=== PATIENT | male | born 1950 | race Caucasian/White ===

== ENCOUNTER → 2023-07-13 08:29 | Outpatient (REF) | payer MEDICARE, OTHER, SELFPAY | LOC: MRI 3T 08:29 | PROVIDERS: ATTENDING PHYSICIAN Specialist; FAMILY PHYSICIAN Family Medicine; OTHER PHYSICIAN Chiropractor; REFERRING PHYSICIAN Neurological Surgery | DX: M50.11 Cervical disc disorder with radiculopathy, high cervical region (principal) | CPT/HCPCS: 72141 ==

== ENCOUNTER → 2023-08-15 07:19 | Outpatient (REF) | payer MEDICARE, OTHER, SELFPAY | LOC: RAD 07:19 | PROVIDERS: ATTENDING PHYSICIAN Specialist; FAMILY PHYSICIAN Family Medicine | DX: N23 Unspecified renal colic (principal) | CPT/HCPCS: 74176 ==

== ENCOUNTER → 2023-12-01 09:35 | Outpatient (REF) | payer MEDICARE, OTHER, SELFPAY | LOC: MRI 3T 09:35 | PROVIDERS: ATTENDING PHYSICIAN Specialist; FAMILY PHYSICIAN Family Medicine | DX: M48.07 Spinal stenosis, lumbosacral region (principal); M54.16 Radiculopathy, lumbar region | CPT/HCPCS: 72148 ==

== ENCOUNTER → 2023-12-28 08:52 | Outpatient (REF) | payer MEDICARE, OTHER, SELFPAY | LOC: MRI 3T 08:52 | PROVIDERS: ATTENDING PHYSICIAN Neurological Surgery; FAMILY PHYSICIAN Family Medicine; OTHER PHYSICIAN Neurological Surgery; OTHER PHYSICIAN Specialist | DX: M48.02 Spinal stenosis, cervical region (principal) | CPT/HCPCS: 72141 ==

== ENCOUNTER 2024-08-03 04:13 | Emergency (ER) | payer MEDICARE, OTHER, SELFPAY ==
[2024-08-03 04:22] VITALS: BP 120/70
[2024-08-03 04:52] VITALS: BP 114/68; BMI 27.6
[2024-08-03 05:00] VITALS: BP 130/69
[2024-08-03 05:11] LABS: % Basophils 0.7 % (0-2); % Eosinophils 2.6 % (0-6); % Immature Granulocytes 0.3 % (0-0.5); % Lymphocytes 43.3 % (20.5-51.1); % Monocytes 9.2 % (1.7-9.3); % Neutrophils 43.9 % (42.2-75.2); Absolute Eosinophils 0.2 10^3/uL (0-0.7); Absolute Lymphocytes 2.5 10^3/uL (1.2-3.4); Absolute Monocytes 0.5 10^3/uL (0.1-0.6); Absolute Neutrophils 2.5 10^3/uL (1.4-6.5); Hemoglobin 13.6 g/dL (13.0-18.0); Mean Corp Hgb Conc. 32.4 g/dL (33.0-37.0); Mean Corpuscular Hgb 29.7 pg (27.0-31.0); Mean Corpuscular Volume 91.7 fL (80.0-94.0); Mean Platelet Volume 9.7 fL (7.4-10.4); Nucleated Red Blood Cells % 0 % (-); Platelet Count 170 10^3/uL (130-400); Red Blood Cell Count 4.58 10^6/uL (4.70-6.10); Red Cell Dist. Width 14.4 % (11.5-14.5); White Blood Cell Count 5.8 10^3/uL (4.8-10.8)
[2024-08-03 05:34] LABS: ALT (SGPT) 34 U/L (0-50); AST (SGOT) 40 U/L (17-59); Albumin 4.3 g/dl (3.5-5.0); Alkaline Phosphatase 62 U/L (38-126); Blood Urea Nitrogen 20 mg/dl (9-20); Calcium 9.4 mg/dl (8.4-10.2); Carbon Dioxide 27 mmol/L (22-30); Chloride 103 mmol/L (98-107); Estimated Creatinine Clearance 79 ml/min; Glucose 126 mg/dl (70-99); Potassium 3.8 mmol/L (3.5-5.1); Sodium 139 mmol/L (135-145); Total Bilirubin 1.4 mg/dl (0.2-1.3); Total Protein 6.6 g/dl (6.3-8.2); eGFR > 60.00
[2024-08-03 05:47] LABS: Troponin I < 0.012 ng/ml
[2024-08-03 06:00] VITALS: BP 104/64
--- NOTE | 2024-08-03 06:21 | ED.GENMED ---
History of Present Illness
General
Chief Complaint: Cardiac Symptoms
Source: patient
Exam Limitations: none
Time Seen by Provider: 08/03/24 06:12
History of Present Illness
History of Present Illness:
See MDM
Past History
Past History
ED Past Medical History: [place] and Other (Spinal stenosis, AAA)
ED Past Surgical History: Cardiac (CABG X5) and Orthopedic
Social History
Tobacco: Non-smoker
Alcohol: Occasional
Personal:
Living: with family
Phy Exam
Physical Exam
Physical Exam:
See MDM
Course
Orders/Labs/Results
Orders:
Orders
08/03/24 04:18
ECG [Electrocardiogram (*1)] Urgent
Reason for Study: Atrial Fibrillation
EKG- Treatment ONCE
EKG- Treatment ONCE
08/03/24 04:53
Electrocardiogram (*1) Urgent
Reason for Study: Atrial Fibrillation
Other Reason for Exam: converted to NSR
EKG- Treatment ONCE
Complete Blood Count/With Diff Urgent
Comprehensive Metabolic Panel Urgent
Troponin I Urgent
Abnormal Lab Results
08/03/24
04:53
RBC 4.58 L 10^6/uL
(4.70-6.10)
MCHC 32.4 L g/dL
(33.0-37.0)
Glucose 126 H mg/dl
(70-99)
Total Bilirubin 1.4 H mg/dl
(0.2-1.3)
08/03/24 04:53
08/03/24 04:53
Vital Signs
Initial and Last Documented VS:
Initial Vital Signs
Temp Pulse Resp BP Pulse Ox
97.8 F 70 20 120/70 100
08/03/24 04:22 08/03/24 04:22 08/03/24 04:22 08/03/24 04:22 08/03/24 04:22
Last Documented Vital Signs
Temp Pulse Resp BP Pulse Ox
97.8 F 67 16 104/64 98
08/03/24 04:22 08/03/24 06:00 08/03/24 06:00 08/03/24 06:00 08/03/24 06:00
MDM/Problems Addressed
Differential Diagnosis Includes:
HPI and MDM Narrative:
74-year-old male presenting for evaluation of recurrent A-fib. Patient felt himself go through A-fib in the low night. He states his heart rate was going as fast as 120 bpm. Patient states he took an extra Coreg. 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 Patient felt a pounding heartbeat. This was associated with mild chest discomfort. On arrival, patient flipped back to sinus rhythm. All symptoms have since resolved. Patient does acknowledge that he
just want to make sure that his labs were okay and his troponin was normal
On my evaluation, patient well-appearing and nontoxic. Heart regular rate and rhythm. No leg edema. Patient sitting in bed comfortably. We discussed no clinically relevant lab abnormalities and patient states feels comfortable going home
Physical exam
General: Well appearing and non-toxic
HEENT: protecting airway
Neck: appears supple
CV: No evidence of cyanosis. Regular rate and rhythm
Resp: No accessory muscle use
Abd: Non-distended
Extremities: No deformities. No leg edema
Neuro: alert
Psych: Normal affect
Skin: Intact
Problems Addressed including Acute and Chronic Conditions affecting care:
1. Recurrent A-fib
Acuity: acute
Prognosis: stable
Details: After extra dose of Coreg at home, patient now in sinus rhythm. Blood work without clinically relevant abnormalities. Patient currently symptom-free
Differential Diagnosis (but not limited to): A-fib with RVR, SVT
Testing considered: Second troponin
Drug therapy (if applicable): OTC meds, please see d/c instruction regarding Rx drugs
Amount and/or Complexity of Data Reviewed
Clinical info obtained from: Patient
External data reviewed: N/A
Labs I independently reviewed (but not limited to): Troponin normal
Radiology: N/A
Pulse Ox: not hypoxic
EKG independently reviewed: Sinus rhythm, normal axis, no STEMI
Sugar Trucker: Sinus rhythm
Critical Care: N/A
Risk of Complication:
Social Determinants of health: Good social support
Discussed with other providers: N/A
Escalation of Care includes Admit/Obs: After being observed in the Emergency Department, pt stable for discharge.
Occasional wrong word or 'sound a like' substitutions may have occurred due to the inherent limitations of voice recognition software. Read the chart carefully and recognize, using context, where substitutions have occurred.
*Critical Care Note
Total Time (30-74mins, 75-104mins- exclusive of procedures): Not Applicable
ED Attending Note
-
Portions of this chart may have been created with voice recognition software.� Occasional wrong word or��sound alike� substitutions may have occurred due to the inherent limitations of voice recognition software.
Discharge Plan
Departure
Patient Disposition: Home (Routine Discharge)
Date of Disposition: 08/03/24
Time of Disposition: 06:24
Patient with high blood pressure during this ER visit?: No
Discharge Problem:
A-fib
Instructions: Atrial fibrillation
Prescriptions:
No Action
zinc 15 MG tablet
15 mg PO DAILY
nitroglycerin 0.4 MG tablet, sublingual
0.4 mg sublingual [id number] PRN (Reason: chest pain)
coenzyme Q10 [Co Q-10] 100 MG capsule
100 mg PO TID
docosahexaenoic acid-epa 1 CAP capsule
1,800 mg PO BID
bergamot (bulk) 15 GM powder
500 mg PO BID
Berberine
600 mg PO BID
aspirin 81 MG tablet,delayed release (DR/EC)
81 mg PO DAILY
B12 5,000 MCG
5,000 mcg PO DAILY
Patient Comments:
metholated form
ascorbic acid (vitamin C) [Vitamin C] 1,000 mg Tablet
1,000 mg PO DAILY
carvedilol 6.25 mg Tablet
3.125 mg PO BID
potassium 99 mg Tablet
99 mg PO DAILY
cholecalciferol (vitamin D3) [Vitamin D3] 125 mcg (5,000 unit) Tablet
7,500 unit PO DAILY
vitamin K2 100 mcg Capsule
200 mcg PO DAILY
Curcumin 400 MG
400 mg PO DAILY
Kelp (iodine) 800 MCG
800 mcg PO DAILY
Patient Comments:
1 drop + 800 mcg
Magnesium Malate 1,250 MG
1,250 mg PO TID
Methylfolate 1,000 MG
1,000 mg PO DAILY
Vitamin B9 50 MG
50 mg PO DAILY
tramadol 50 mg tablet
50 mg PO DAILYPRN PRN (Reason: pain)
pregabalin [Lyrica] 150 mg Capsule
150 mg PO BID
omega 3-vql-ogh-fish oil [Fish Oil] 1,200 (144-216) mg Capsule
1,200 cap PO BID
isosorbide mononitrate 30 mg tablet extended release 24 hr
30 mg PO DAILY Qty: 90 3RF
Repatha SureClick 140 mg/mL Pen Injector
140 mg SC Q2W
Referrals:
Michael Gaspar MD [Family Provider] -
Activity Restrictions/Additional Instructions:
Please return for any worsening symptoms.
You may return at any time if you have further concerns.
Please follow up with your doctor at the first available appointment, preferably this week.
Thank you for choosing [facility].
Interventions
Interventions:
*Risk Screen - Suicide Last Done: 08/03/24 04:22
*General Assessment Last Done: 08/03/24 04:56
*Neglect/Abuse Screening Last Done: 08/03/24 04:22
*ED COVID-19 Vaccine History Last Done: 08/03/24 04:56
ED- Pulmonary Assessment Last Done: 08/03/24 04:56
ED- Cardiac Assessment Last Done: 08/03/24 04:56
Discharge Date and Time
Print Language: LIBERIAN
== END 2024-08-03 06:37 | disposition home or self-care (01) ==
LOC: EMR 04:13
PROVIDERS: Emergency Medicine; EMERGENCY PHYSICIAN Student in an Organized Health Care Education/Training Program; FAMILY PHYSICIAN Family Medicine
DX: I48.91 Unspecified atrial fibrillation (principal); I25.2 Old myocardial infarction; Z95.1 Presence of aortocoronary bypass graft; Z79.899 Other long term (current) drug therapy
CPT/HCPCS: 99284; 80053; 84484; 85025; 93005

== ENCOUNTER → 2024-10-24 13:18 | Outpatient (REF) | payer MEDICARE, OTHER, SELFPAY | LOC: PAVMRI 13:18 | PROVIDERS: ATTENDING PHYSICIAN Nurse Practitioner Family; FAMILY PHYSICIAN Family Medicine | DX: M54.16 Radiculopathy, lumbar region (principal); Z98.890 Other specified postprocedural states | CPT/HCPCS: 72148 ==

== ENCOUNTER 2024-11-09 15:21 | Emergency (ER) | payer MEDICARE, OTHER, SELFPAY ==
[2024-11-09 15:22] VITALS: BP 116/76
[2024-11-09 16:01] VITALS: BMI 27.1
[2024-11-09] MEDS: TORADOL 15 MG IV (16:32)
[2024-11-09 16:46] LABS: Urine Albumin Negative (Neg - Trace); Urine Bilirubin Negative (Negative); Urine Character Clear (Clear); Urine Color Yellow; Urine Glucose Negative (Negative); Urine Ketone Negative (Negative); Urine Leukocyte Negative (Negative); Urine Nitrite Negative (Negative); Urine Occult Blood Negative (Negative); Urine Specific Gravity 1.015 (<1.030); Urine Urobilinogen Negative (Neg - 1+)
[2024-11-09 16:47] LABS: % Basophils 0.6 % (0-2); % Immature Granulocytes 0.1 % (0-0.5); % Lymphocytes 21.1 % (20.5-51.1); % Monocytes 9.4 % (1.7-9.3); % Neutrophils 67.8 % (42.2-75.2); Absolute Eosinophils 0.1 10^3/uL (0-0.7); Absolute Lymphocytes 1.5 10^3/uL (1.2-3.4); Absolute Monocytes 0.7 10^3/uL (0.1-0.6); Absolute Neutrophils 4.9 10^3/uL (1.4-6.5); Hematocrit 35.9 % (39.0-52.0); Hemoglobin 11.9 g/dL (13.0-18.0); Mean Corp Hgb Conc. 33.1 g/dL (33.0-37.0); Mean Corpuscular Hgb 30.4 pg (27.0-31.0); Mean Corpuscular Volume 91.8 fL (80.0-94.0); Nucleated Red Blood Cells % 0 % (-); Platelet Count 170 10^3/uL (130-400); Red Blood Cell Count 3.91 10^6/uL (4.70-6.10); Red Cell Dist. Width 14.1 % (11.5-14.5); White Blood Cell Count 7.3 10^3/uL (4.8-10.8)
--- NOTE | 2024-11-09 16:52 | ED.GENMED ---
History of Present Illness
General
Chief Complaint: Flank Pain
Time Seen by Provider: 11/09/24 15:36
History of Present Illness
History of Present Illness:
74-year-old male with history of chronic back issues presenting to the emergency department for abdominal pain. Patient reports symptoms started around noon. Pain is in the right side of his back, travels to his abdomen. Denies associated urinary
complaints. Notes history of gallbladder issues as well as kidney stones. Denies abdominal surgeries. Denies fever. Denies symptoms starting after any particular food intake. Denies fever, chest pain, difficulty breathing denies vomiting or
changes in stool. Denies additional acute medical complaints
Past History
Past History
ED Past Medical History: [place] and Other (Spinal stenosis, AAA)
ED Past Surgical History: Cardiac (CABG X5) and Orthopedic
Social History
Tobacco: Non-smoker
Alcohol: Occasional
Personal:
Living: with family
Phy Exam
Physical Exam
Physical Exam:
General: Well-appearing, no clinical signs of dehydration, nontoxic and in no acute distress
HEENT: protecting airway
Neck: appears supple
CV: Normal heart rate, regular rhythm
Resp: No accessory muscle use, no increased work of breathing, lungs clear to auscultation bilaterally
Abd: Soft and non-distended, focal tenderness to the right upper and lower quadrants of the abdomen, upper greater than lower. No rebound or guarding. No CVA tenderness.
Extremities: No deformities, no swelling, no erythema, pulses and sensation intact
Neuro: alert, no focal neurologic deficit
: deferred
Rectal: deferred
Psych: Normal affect
Skin: Intact
Course
Orders/Labs/Results
Orders:
Orders
11/09/24 16:14
Ketorolac [Toradol] 15 mg IV NOW STA
US Abdomen Complete/Upper Urgent
Comment:
Reason For Exam: RUQ pain, hx gallstones
11/09/24 16:35
Complete Blood Count/With Diff Urgent
Comprehensive Metabolic Panel Urgent
Lipase Urgent
Urinalysis Reflex To Culture Urgent
Date Specimen was Collected: 11/09/24
Time Specimen was Collected: 16:32
11/09/24 17:40
CT Abd/pelvis W Iv Cont Urgent
Comment:
Reason For Exam: Right upper and lower pain, right back pain
Abnormal Lab Results
11/09/24
16:35
RBC 3.91 L 10^6/uL
(4.70-6.10)
Hgb 11.9 L g/dL
(13.0-18.0)
Hct 35.9 L %
(39.0-52.0)
Absolute Monos (auto) 0.7 H 10^3/uL
(0.1-0.6)
Monocytes % 9.4 H %
(1.7-9.3)
Chloride 111 H mmol/L
(98-107)
Glucose 103 H mg/dl
(70-99)
Total Bilirubin 1.4 H mg/dl
(0.2-1.3)
AST 125 H U/L
(17-59)
ALT 61 H U/L
(0-50)
11/09/24 16:35
11/09/24 16:35
Vital Signs
Initial and Last Documented VS:
Initial Vital Signs
Temp Pulse Resp BP Pulse Ox
97.6 F 61 16 116/76 100
11/09/24 15:22 11/09/24 15:22 11/09/24 15:22 11/09/24 15:22 11/09/24 15:22
Last Documented Vital Signs
Temp Pulse Resp BP Pulse Ox
97.6 F 61 16 116/76 100
11/09/24 15:22 11/09/24 15:22 11/09/24 15:22 11/09/24 15:22 11/09/24 15:22
MDM/Problems Addressed
MDM/Problems Addressed:
74-year-old male presenting to the emergency department for right-sided abdominal pain. Vital signs are normal.
On exam patient is resting comfortably, no acute distress. Focal tenderness to the right side of the abdomen, however upper greater than lower. Cholelithiasis versus cholecystitis versus nephrolithiasis consideration. Plan for laboratory
analysis, urinalysis. Will start with upper abdominal ultrasound imaging for further evaluation. Toradol administered for pain
17:40 -patient reports improvement in pain. Ultrasound shows cholelithiasis without evidence of cholecystitis. Mild elevation of T. bili, however appears chronic. Patient with mild elevation of liver function, however ultrasound notes suspected
underlying liver disease. No dilatation to the biliary ducts. Lower suspicion for choledocholithiasis. However, patient continues to report right lower pain and right back pain. Urine without any blood. Lower suspicion for renal stone. Does no
history of diverticulitis. For this reason we will proceed with CT imaging to ensure no additional acute pathology.
19:10-CT without additional acute pathology. Mention of cholelithiasis without any findings to suggest biliary tract dilatation. There is a small right renal cyst. 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
follow-up. Otherwise feel stable for discharge with diagnosis of cholelithiasis. Diet monitor discussed and outpatient surgical follow-up. Return precautions discussed.
*Critical Care Note
Total Time (30-74mins, 75-104mins- exclusive of procedures): Not Applicable
ED Attending Note
-
Portions of this chart may have been created with voice recognition software.� Occasional wrong word or��sound alike� substitutions may have occurred due to the inherent limitations of voice recognition software.
Discharge Plan
Departure
Prescriptions:
No Action
zinc 15 MG tablet
15 mg PO DAILY
nitroglycerin 0.4 MG tablet, sublingual
0.4 mg sublingual [id number] PRN (Reason: chest pain)
coenzyme Q10 [Co Q-10] 100 MG capsule
100 mg PO TID
docosahexaenoic acid-epa 1 CAP capsule
1,800 mg PO BID
bergamot (bulk) 15 GM powder
500 mg PO BID
Berberine
600 mg PO BID
aspirin 81 MG tablet,delayed release (DR/EC)
81 mg PO DAILY
B12 5,000 MCG
5,000 mcg PO DAILY
Patient Comments:
metholated form
ascorbic acid (vitamin C) [Vitamin C] 1,000 mg Tablet
1,000 mg PO DAILY
carvedilol 6.25 mg Tablet
3.125 mg PO BID
potassium 99 mg Tablet
99 mg PO DAILY
cholecalciferol (vitamin D3) [Vitamin D3] 125 mcg (5,000 unit) Tablet
7,500 unit PO DAILY
vitamin K2 100 mcg Capsule
200 mcg PO DAILY
Curcumin 400 MG
400 mg PO DAILY
Kelp (iodine) 800 MCG
800 mcg PO DAILY
Patient Comments:
1 drop + 800 mcg
Magnesium Malate 1,250 MG
1,250 mg PO TID
Methylfolate 1,000 MG
1,000 mg PO DAILY
Vitamin B9 50 MG
50 mg PO DAILY
tramadol 50 mg tablet
50 mg PO DAILYPRN PRN (Reason: pain)
pregabalin [Lyrica] 150 mg Capsule
150 mg PO BID
omega 9-vwc-duz-fish oil [Fish Oil] 1,200 (144-216) mg Capsule
1,200 cap PO BID
isosorbide mononitrate 30 mg tablet extended release 24 hr
30 mg PO DAILY Qty: 90 3RF
Repatha SureClick 140 mg/mL Pen Injector
140 mg SC Q2W
Referrals:
Michael Gaspar MD [Family Provider, Family Practice]
Interventions
Interventions:
*Risk Screen - Suicide Last Done: 11/09/24 15:22
*General Assessment Last Done: 11/09/24 15:22
*Neglect/Abuse Screening Last Done: 11/09/24 15:59
*ED- Fall Risk Assessment Last Done: 11/09/24 15:59
*ED COVID-19 Vaccine History Last Done: 11/09/24 15:59
JY-Xkcmfk-Njkskkiumn Assessment Last Done: 11/09/24 15:59
ED-Male Genitourinary Assessment Last Done: 11/09/24 15:59
Discharge Date and Time
Print Language: FAROESE
[2024-11-09 17:02] LABS: ALT (SGPT) 61 U/L (0-50); AST (SGOT) 125 U/L (17-59); Albumin 4.3 g/dl (3.5-5.0); Alkaline Phosphatase 57 U/L (38-126); Blood Urea Nitrogen 18 mg/dl (9-20); Calcium 9.4 mg/dl (8.4-10.2); Carbon Dioxide 27 mmol/L (22-30); Chloride 111 mmol/L (98-107); Estimated Creatinine Clearance 87 ml/min; Glucose 103 mg/dl (70-99); Lipase 160 U/L (23-300); Potassium 4.1 mmol/L (3.5-5.1); Sodium 141 mmol/L (135-145); Total Bilirubin 1.4 mg/dl (0.2-1.3); Total Protein 6.3 g/dl (6.3-8.2); eGFR > 60.00
== END 2024-11-09 19:58 | disposition home or self-care (01) ==
LOC: EMR 15:21
PROVIDERS: EMERGENCY PHYSICIAN Student in an Organized Health Care Education/Training Program; FAMILY PHYSICIAN Family Medicine
DX: K80.20 Calculus of gallbladder without cholecystitis without obstruction (principal); N28.1 Cyst of kidney, acquired; I25.2 Old myocardial infarction; Z95.1 Presence of aortocoronary bypass graft
CPT/HCPCS: 99284; 96374; 74177; 76700; 80053; 81003; 83690; 85025; Q9967

== ENCOUNTER → 2024-11-21 09:49 | Outpatient (REF) | payer MEDICARE, OTHER, SELFPAY | LOC: PAVMRI 09:49 | PROVIDERS: ATTENDING PHYSICIAN Neurological Surgery; FAMILY PHYSICIAN Family Medicine | DX: M48.04 Spinal stenosis, thoracic region (principal) | CPT/HCPCS: 72146 ==

== ENCOUNTER 2024-12-17 00:44 | Emergency (ER) | payer MEDICARE, OTHER, SELFPAY ==
[2024-12-17 00:44] VITALS: BMI 28.4
[2024-12-17 01:08] VITALS: BP 157/72
[2024-12-17 01:37] VITALS: BP 148/66
[2024-12-17 02:00] VITALS: BP 126/57
[2024-12-17 02:24] LABS: Hematocrit 36.1 % (39.0-52.0); Hemoglobin 12.1 g/dL (13.0-18.0); Mean Corp Hgb Conc. 33.5 g/dL (33.0-37.0); Mean Corpuscular Volume 90.9 fL (80.0-94.0); Nucleated Red Blood Cells % 0 % (-); Platelet Count 179 10^3/uL (130-400); Red Cell Dist. Width 13.4 % (11.5-14.5)
[2024-12-17 02:44] LABS: ALT (SGPT) 35 U/L (0-50); AST (SGOT) 35 U/L (17-59); Albumin 4.1 g/dl (3.5-5.0); Alkaline Phosphatase 43 U/L (38-126); Blood Urea Nitrogen 27 mg/dl (9-20); Calcium 9.4 mg/dl (8.4-10.2); Carbon Dioxide 27 mmol/L (22-30); Chloride 110 mmol/L (98-107); Estimated Creatinine Clearance 87 ml/min; Glucose 124 mg/dl (70-99); Potassium 4.3 mmol/L (3.5-5.1); Sodium 141 mmol/L (135-145); Total Protein 6.6 g/dl (6.3-8.2); eGFR > 60.00
[2024-12-17] MEDS: DECADRON 10 MG IV (02:48)
[2024-12-17] MEDS: DUONEB 3 ML INH ×2 (02:49→04:20)
[2024-12-17] MEDS: TYLENOL 650 MG PO (02:50)
[2024-12-17] MEDS: NSS 500 IV (02:50)
--- NOTE | 2024-12-17 03:18 | ED.GENMED ---
History of Present Illness
General
Chief Complaint: Cough
Source: patient
Exam Limitations: none
Time Seen by Provider: 12/17/24 02:00
Nursing documentation reviewed up to this point in time: agreed with
History of Present Illness
History of Present Illness:
see mdm
Past History
Past History
ED Past Medical History: [place] and Other (Spinal stenosis, AAA)
ED Past Surgical History: Cardiac (CABG X5) and Orthopedic
Social History
Tobacco: Non-smoker
Alcohol: Occasional
Personal:
Living: with family
Review of Systems
Review of Systems
Allergies reviewed?: Yes
All Other Systems: Not applicable
Phy Exam
Physical Exam
Physical Exam:
GENERAL: Alert , in no apparent distress nontoxic but appears slightly ill
EYE: pupils equal and reactive
NECK: Supple
ENT: b/l TM s clear, pharynx erythematous but no tonsillar hypertrophy or exudates
CARDIAC: Regular rate and rhythm, no edema
LUNGS: Significant rhonchi throughout, faint end expiratory wheeze, good air movement, no respiratory distress
ABDOMEN: Soft, without focal tenderness, no r/g, no cvat, normal bowel sounds
NEUROLOGICAL: Alert and oriented, no focal neuro deficits
SKIN: Warm and dry, skin intact.
MUSCULOSKELETAL: No edema, well perfused.
PSYCH: Normal and appropriate interaction.
Sepsis
Sepsis Screening
Sepsis Assessment: Sepsis Ruled Out
Sepsis Screen
Sepsis Screen: Sepsis Ruled Out
Date: 12/17/24
Time: 06:43
Course
Orders/Labs/Results
Orders:
Orders
12/17/24 01:49
Electrocardiogram (*1) Urgent
Reason for Study: Other
Other Reason for Exam: Possible Sepsis
Cardiac Monitoring- Treatment ONCE
IV Insert/Care/Rem.- Treatment PRN
O2 Therapy [RESP] Urgent
Titrate/Wean O2 to maintain O2 sat greater than (%): 93
Special Instructions: TO MAINTAIN CONTINUOUS O2 SATS > OR = 93%
Pulse Ox/cont/shift [RESP] Urgent
Quantity: 1
Special Instructions: CONTINUOUS
12/17/24 01:50
CR Chest - 2 Views Urgent
Comment:
Reason For Exam: suspected infection
12/17/24 01:51
EKG- Treatment ONCE
12/17/24 02:12
Complete Blood Count/With Diff Urgent
Comprehensive Metabolic Panel Urgent
12/17/24 02:39
0.9% Sodium Chloride 500 ml [Nss] 500 ml IV BOLUS
Dexamethasone Sod Phosphate [Decadron] 10 mg IV NOW STA
Ipratropium/Albuterol Sulfate [Duoneb] 3 ml INH R NOW ONE
12/17/24 02:40
Acetaminophen [Tylenol] 650 mg PO NOW STA
12/17/24 02:56
COVID-19 Antigen Urgent
Source: Nasal Swab
NT-proBNP Urgent
Influenza A+B Rapid Molecular Urgent
MARIOLA Source: Nasal Swab
Specimen Description:
12/17/24 04:18
Ipratropium/Albuterol Sulfate [Duoneb] 3 ml INH R NOW ONE
12/17/24 04:19
Ipratropium/Albuterol Sulfate [Duoneb] 3 ml .ROUTE .STK-MED ONE
Ipratropium/Albuterol Sulfate [Duoneb] 3 ml INH R NOW ONE
12/17/24 05:35
Amoxicillin 875 mg/Clav 125 mg [Augmentin 875 mg/125 mg] 1 tablet PO NOW STA
Azithromycin [Zithromax] 500 mg PO NOW STA
Abnormal Lab Results
12/17/24
02:12
WBC 12.3 H 10^3/uL
(4.8-10.8)
RBC 3.97 L 10^6/uL
(4.70-6.10)
Hgb 12.1 L g/dL
(13.0-18.0)
Hct 36.1 L %
(39.0-52.0)
Absolute Neuts (auto) 10.1 H 10^3/uL
(1.4-6.5)
Absolute Monos (auto) 0.7 H 10^3/uL
(0.1-0.6)
Neutrophils % 81.9 H %
(42.2-75.2)
Lymphocytes % 11.6 L %
(20.5-51.1)
Chloride 110 H mmol/L
(98-107)
BUN 27 H mg/dl
(9-20)
Glucose 124 H mg/dl
(70-99)
12/17/24 02:12
12/17/24 02:12
Vital Signs
Initial and Last Documented VS:
Initial Vital Signs
Temp Pulse Resp BP Pulse Ox
37.3 C 62 16 157/72 96
12/17/24 01:08 12/17/24 01:08 12/17/24 01:08 12/17/24 01:08 12/17/24 01:08
Last Documented Vital Signs
Temp Pulse Resp BP Pulse Ox
37.3 C 64 16 132/73 96
12/17/24 01:08 12/17/24 02:15 12/17/24 02:15 12/17/24 05:00 12/17/24 05:30
MDM/Problems Addressed
Differential Diagnosis Includes:
see mdm
MDM/Problems Addressed:
Note:
CHIEF COMPLAINT(S)
Worsening respiratory symptoms, including thick mucus and cough.
HISTORY OF PRESENT ILLNESS
The patient is a 74-year-old male with a history of pneumonia diagnosed approximately three weeks ago. The initial diagnosis was confirmed after he sought medical attention for respiratory symptoms. A chest X-ray was performed, and the patient was
initially told there was no pneumonia, but later received a call confirming it. The patient was prescribed doxycycline and completed one week of treatment. During follow-up with his primary care physician, the patients chest was examined, revealing
rhonchi sounds primarily in the upper chest, The physician assured the patient that thick mucus production was common post-pneumonia and could last from four to six weeks.
However, the patient reports that symptoms worsened today, particularly with increased mucus production. He self-administered mucinex and took a couple of puffs from an inhaler around 10 pm. The patient denies experiencing fever or shortness of
breath but reports chest discomfort attributed to coughing.only, not breathing.
He notes pressure in his cheekbones but no blood in his sputum, breathlessness upon exertion, or gastrointestinal symptoms.
The patient has a history of deep vein thrombosis in the left leg in 2014, likely related to wearing a knee brace, and was treated with lovenox for six months.
REVIEW OF SYSTEMS
- Respiratory: Increased mucus production, cough with chest discomfort due to coughing, and a history of bronchitis-like symptoms.
- Ear, Nose, and Tongue: Pressure in cheekbones.
- Gastrointestinal: No diarrhea.
- Hematologic: History of deep vein thrombosis in 2014, managed with anticoagulation.
- General: Muscle aches and general pain without fever.
PHYSICAL EXAM
- Respiratory: Auscultation noted crackling and a 'junkie' quality to lung sounds, suggestive of mucus presence. see exam
- Nursing notes reviewed and vital signs reviewed.
PROBLEM LIST
Acute Problems:
- Worsening respiratory symptoms, likely secondary to bronchitis or incomplete resolution of pneumonia.
- Increased mucus production and cough with associated chest discomfort.
Chronic Problems:
- History of hypertension.
- Neuropathy, managed with pregabalin.
- History of deep vein thrombosis in 2014.
PLAN
1. Perform blood work to evaluate further.
2. Administer a breathing treatment to potentially improve respiratory symptoms.
3. Consider prescribing a short course of steroids to increase airway opening.
4. Consider adding an atypical antibiotic, azithromycin, to target potential atypical bacterial activity contributing to bronchitis.
5. Swab for viral infections (e.g. influenza) for differential assessment.
DIFFERENTIAL DIAGNOSIS
The Differential Diagnosis includes, in no particular order and is not limited to:
1. Bronchitis
2. Persistent pneumonia
3. Viral respiratory infection
4. Sinusitis
5. Chronic obstructive pulmonary disease exacerbation
6. Heart failure exacerbation
7. Pulmonary embolism
8. Asthma exacerbation
9. Interstitial lung disease
10. Post-infectious cough
Reassessed after first neb. Patient had some improvement in symptoms but was still wheezy so we got a second neb. Briefly he felt a little bit worse but then after ambulating around the department with a normal pulse ox of 94% he actually felt
better and he sounded much better. Patient's chest x-ray was independently reviewed by me and there is no obvious infiltrate however I do think this was a viral bronchitis that was probably treated with antibiotics too early and now is becoming
bacterial. His flu and COVID were negative. I offered him admission to the hospital for IV steroids and antibiotics and pulmonary toilet nebs but the patient actually feels comfortable going home. He was set up with a neb machine, prednisone,
Augmentin and Zithromax and will follow-up with his family doctor
*Pulse Oximetry
SaO2: 97
Oxygen Mode of Delivery: Room air
Patient hypoxic: no (95)
*Critical Care Note
Total Time (30-74mins, 75-104mins- exclusive of procedures): Not Applicable
ED Attending Note
-
Portions of this chart may have been created with voice recognition software.� Occasional wrong word or��sound alike� substitutions may have occurred due to the inherent limitations of voice recognition software.
Discharge Plan
Departure
Patient Disposition: Home (Routine Discharge)
Date of Disposition: 12/17/24
Time of Disposition: 05:29
Patient with high blood pressure during this ER visit?: No
Condition: Fair
Covid-19: Not Applicable
Discharge Problem:
Acute asthmatic bronchitis
Instructions: Acute Bronchitis, Adult (DC), Pneumonia, Adult (DC)
Prescriptions:
New
clotrimazole 10 mg ramón
10 mg mucous membrane TID PRN (Reason: thrush) 7 Days Qty: 21 0RF
albuterol sulfate 2.5 mg /3 mL (0.083 %) solution for nebulization
2.5 mg inhalation QID PRN (Reason: shortness of breath or wheezing) Qty: 90 0RF
prednisone 50 mg tablet
50 mg PO DAILY Qty: 4 0RF
amoxicillin-pot clavulanate 875-125 mg tablet
1 tab PO BID Qty: 14 0RF
azithromycin [Zithromax] 250 mg tablet
250 mg PO DAILY Qty: 4 0RF
benzonatate 200 mg capsule
200 mg PO BID PRN (Reason: Cough) Qty: 12 0RF
No Action
zinc 15 MG tablet
15 mg PO DAILY
nitroglycerin 0.4 MG tablet, sublingual
0.4 mg sublingual [id number] PRN (Reason: chest pain)
coenzyme Q10 [Co Q-10] 100 MG capsule
100 mg PO TID
docosahexaenoic acid-epa 1 CAP capsule
1,800 mg PO BID
bergamot (bulk) 15 GM powder
500 mg PO BID
Berberine
600 mg PO BID
aspirin 81 MG tablet,delayed release (DR/EC)
81 mg PO DAILY
B12 5,000 MCG
5,000 mcg PO DAILY
Patient Comments:
metholated form
ascorbic acid (vitamin C) [Vitamin C] 1,000 mg Tablet
1,000 mg PO DAILY
carvedilol 6.25 mg Tablet
3.125 mg PO BID
potassium 99 mg Tablet
99 mg PO DAILY
cholecalciferol (vitamin D3) [Vitamin D3] 125 mcg (5,000 unit) Tablet
7,500 unit PO DAILY
vitamin K2 100 mcg Capsule
200 mcg PO DAILY
Curcumin 400 MG
400 mg PO DAILY
Kelp (iodine) 800 MCG
800 mcg PO DAILY
Patient Comments:
1 drop + 800 mcg
Magnesium Malate 1,250 MG
1,250 mg PO TID
Methylfolate 1,000 MG
1,000 mg PO DAILY
Vitamin B9 50 MG
50 mg PO DAILY
tramadol 50 mg tablet
50 mg PO DAILYPRN PRN (Reason: pain)
pregabalin [Lyrica] 150 mg Capsule
150 mg PO BID
omega 3-mgh-nyh-fish oil [Fish Oil] 1,200 (144-216) mg Capsule
1,200 cap PO BID
isosorbide mononitrate 30 mg tablet extended release 24 hr
30 mg PO DAILY Qty: 90 3RF
Repatha SureClick 140 mg/mL Pen Injector
140 mg SC Q2W
Referrals:
UNKNOWN - PT DOES,NOT KNOW [Family Provider]
Activity Restrictions/Additional Instructions:
Your x-ray did not show an obvious pneumonia but you could be developing a new pneumonia. Take Augmentin twice a day and Zithromax once a day starting tonight with the Augmentin and tomorrow for the Zithromax. Take prednisone once a day starting
tomorrow. Use the inhaler or neb machine every 4-6 hours as needed for wheezing and cough. Make sure to wash your mouth out after using it. You can use the clotrimazole ramón to prevent thrush
Have a low threshold for returning especially for worse shortness of breath, wheezing, fever, fatigue, Chest pain.
Otherwise please follow-up with your doctor
If the radiologist sees a pneumonia on the x-ray when they review it we will call you however you will already be treated
Interventions
Interventions:
*Risk Screen - Suicide Last Done: 12/17/24 01:08
*General Assessment Last Done: 12/17/24 01:08
*Neglect/Abuse Screening Last Done: 12/17/24 01:08
*Nursing Disposition Last Done: 12/17/24 05:58
ED- Pulmonary Assessment Last Done: 12/17/24 01:46
Discharge Date and Time
Discharge Date/Time: 12/17/24 06:09
Print Language: LITHUANIAN
[2024-12-17 03:22] LABS: COVID-19 Antigen Negative (Negative)
[2024-12-17 04:56] VITALS: BP 137/69
[2024-12-17 05:00] VITALS: BP 132/73
[2024-12-17] MEDS: ZITHROMAX 500 MG PO (05:44)
[2024-12-17] MEDS: AUGMENTIN 875 MG/125 MG 1 TABLET PO (05:44)
== END 2024-12-17 06:09 | disposition home or self-care (01) ==
LOC: EMR 00:44
PROVIDERS: Physician Assistant; EMERGENCY PHYSICIAN Student in an Organized Health Care Education/Training Program
DX: J45.909 Unspecified asthma, uncomplicated (principal); I25.2 Old myocardial infarction; Z95.1 Presence of aortocoronary bypass graft; I10 Essential (primary) hypertension; Z11.52 Encounter for screening for COVID-19
CPT/HCPCS: 94640; 96374; 96361; 99284; 71046; 80053; 83880; 85025; 87502; 87811

== ENCOUNTER → 2025-04-20 17:36 | Outpatient (REF) | payer MEDICARE, OTHER, SELFPAY | LOC: MRI 3T 17:36 | PROVIDERS: ATTENDING PHYSICIAN Psychiatry & Neurology Neurology; FAMILY PHYSICIAN Family Medicine | DX: R41.3 Other amnesia (principal); R93.0 Abnormal findings on diagnostic imaging of skull and head, not elsewhere classified | CPT/HCPCS: 70553; A9575 ==

== ENCOUNTER 2025-05-11 22:27 | Emergency (ER) | payer MEDICARE, OTHER, SELFPAY ==
[2025-05-11 22:33] VITALS: BP 128/87
[2025-05-11 22:54] VITALS: BMI 28.1
[2025-05-11 22:55] VITALS: BP 122/78
[2025-05-11 22:58] LABS: Hematocrit 38.2 % (39.0-52.0); Hemoglobin 12.6 g/dL (13.0-18.0); Mean Corp Hgb Conc. 33.0 g/dL (33.0-37.0); Mean Corpuscular Volume 89.0 fL (80.0-94.0); Nucleated Red Blood Cells % 0 % (-); Platelet Count 204 10^3/uL (130-400); Red Cell Dist. Width 14.5 % (11.5-14.5)
[2025-05-11 23:00] VITALS: BP 115/74
[2025-05-11 23:20] LABS: ALT (SGPT) 34 U/L (0-50); AST (SGOT) 40 U/L (17-59); Albumin 4.5 g/dl (3.5-5.0); Alkaline Phosphatase 62 U/L (38-126); Blood Urea Nitrogen 16 mg/dl (9-20); Calcium 9.7 mg/dl (8.4-10.2); Carbon Dioxide 31 mmol/L (22-30); Chloride 106 mmol/L (98-107); Estimated Creatinine Clearance 87 ml/min; Glucose 106 mg/dl (70-99); Magnesium 2.1 mg/dl (1.6-2.3); Potassium 4.0 mmol/L (3.5-5.1); Sodium 141 mmol/L (135-145); Total Protein 7.1 g/dl (6.3-8.2); eGFR > 60.00
[2025-05-12] VITALS: BP 128/74
--- NOTE | 2025-05-12 00:19 | ED.GENMED ---
History of Present Illness
General
Chief Complaint: Heart Rate Problem
Source: patient and spouse
Time Seen by Provider: 05/11/25 23:35
History of Present Illness
History of Present Illness:
Note:
CHIEF COMPLAINT(S)
Palpitations
HISTORY OF PRESENT ILLNESS
The patient is a 74-year-old male presenting with palpitations that began around 7:00 PM today. The patient has a history of paroxysmal atrial fibrillation, which was last experienced approximately five months ago following a previous episode that
resolved spontaneously after approximately two hours in the emergency department. The patient reports feeling palpitations without the need for monitoring devices, although confirms the arrhythmia with his smartwatch, which indicated atrial
fibrillation at the onset of symptoms. The patient took an additional dose of carvedilol at home. The patient notes previous instances where the arrhythmia resolved on its own and was advised to go to the hospital if it recurred. Currently, the
patient denies symptoms of shortness of breath, chest pain, or diaphoresis. The heart rate as noted from his smartwatch was fluctuating, observed as low as 79 and peaking at around 130 beats per minute.
The patient has not been previously placed on blood thinners as his lamp decorator indicated it was unnecessary if episodes resolved shortly. The patient is hesitant about undergoing cardioversion unless deemed essential and prefers to wait to see if
the arrhythmia resolves on its own.
PAST MEDICAL AND SURGICAL HISTORY
- History of heart surgery approximately 20 years ago
- CAD
Atrial fibrillation
EXTERNAL RECORDS REVIEWED
- Patient referenced a recent MRI that reportedly showed a small bleed.
MEDICATIONS
- Carvedilol 3.125 mg
- Naproxen 500 mg
REVIEW OF SYSTEMS
- Cardiovascular: Reports palpitations; denies chest pain.
- Respiratory: Denies shortness of breath.
- General: Denies diaphoresis.
PHYSICAL EXAM
General: Alert, no acute distress.
Skin: Warm, dry.
Head: Normocephalic, atraumatic.
Neck: Supple, trachea midline.
Eye, Ears, Nose, Mouth, and Throat: Oral mucosa moist.
Cardiovascular: Irregularly irregular rhythm, rate noted to be around 89.
Respiratory: Lungs clear on auscultation.
Gastrointestinal: Abdomen non-distended.
Back: Normal range of motion, normal alignment.
Musculoskeletal: Normal range of motion, normal strength.
Neurological: Alert and oriented to person, place, time, and situation, no focal neurological deficit observed.
Psychiatric: Cooperative, appropriate mood & affect.
PROBLEM LIST
Acute Problems:
- Atrial Fibrillation
Chronic Problems:
- History of heart surgery
PLAN
1. Start the patient on Apixaban (Eliquis) to reduce the risk of stroke, pending further cardiology consultation.
2. Advise continuation of increased dose of Carvedilol (6.25 mg) to assist in rate control.
3. Ensure follow-up with cardiology for potential cardioversion if the atrial fibrillation persists and to evaluate the necessity of long-term anticoagulation.
4. Discuss concerns regarding recent MRI findings suggesting a small bleed with primary and specialist medical teams before starting long-term anticoagulation therapy.
DIFFERENTIAL DIAGNOSIS
The Differential Diagnosis includes, in no particular order and is not limited to:
1. Paroxysmal Atrial Fibrillation
2. Supraventricular Tachycardia
3. Atrial Flutter
4. Ventricular Tachycardia
5. Heart Failure Exacerbation
6. Myocardial Infarction
7. Anxiety Disorder
8. Thyrotoxicosis
9. Electrolyte Imbalance
10. Medication-induced Arrhythmia
EKG
My independent EKG interpretation is:
- Time of EKG: Not specified
- Rhythm: Atrial fibrillation
- Heart Rate: 119 beats per minute
- RI Interval: Not specified
- QRS Duration: Not specified
- QT Interval: Not specified
- [place]: Normal
- Abnormalities: Spastic ST segment/T wave changes
Disposition:
SUMMARY OF ENCOUNTER
The patient, a 74-year-old male with a history of atrial fibrillation (AFib), was seen in the emergency department due to palpitations that began earlier in the evening. On examination, his heart rate was 89 beats per minute, with no acute symptoms.
Given his history and recent MRI findings of microhemorrhages in the brain, it was determined that initiating anticoagulation posed too high a risk at this time. The patient declined emergency department cardioversion, preferring to wait for
spontaneous resolution as had occurred in previous episodes. An increased dose of carvedilol was planned to assist in rate control. The patient was advised on reasons to return and will have follow-up tomorrow.
ASSESSMENT
The patient is experiencing atrial fibrillation without significant symptoms. The risk associated with anticoagulation therapy is high due to recent MRI findings.
PLAN
The plan involves doubling the dose of carvedilol for better rate control and ensuring close follow-up. Avoidance of anticoagulation therapy is advised for the time being due to recent MRI showing microhemorrhages. The patient is to return for
outpatient follow-up and monitor symptoms.
INDEPENDENT REVIEW OF LABS AND INTERPRETATION OF TESTS
My independent review of CBC is normal.
My independent review of CMP is normal.
PATIENT EDUCATION AND COUNSELING
The patient was informed about the potential risks associated with starting anticoagulation given recent MRI findings. Education was provided on monitoring symptoms and reasons to seek urgent care if symptoms such as chest pain or significant
palpitations occur. The patient understood the rationale for the increased dose of carvedilol and the avoidance of immediate cardioversion.
FOLLOW-UP INSTRUCTIONS
The patient was instructed to follow up with cardiology tomorrow and to return to the emergency department if symptoms worsen or do not resolve as they have in past instances.
MEDICATION RECONCILIATION
The patient is currently on carvedilol, and the dose is to be doubled to assist with heart rate control. Anticoagulation therapy is to be avoided at this time due to increased risk factors.
MEDICAL DECISION MAKING
1. Number and Complexity of Problems Addressed: Chronic conditions affecting care include atrial fibrillation and history of heart surgery.
Differential Diagnosis: Paroxysmal Atrial Fibrillation, Supraventricular Tachycardia, Atrial Flutter, Ventricular Tachycardia, Heart Failure Exacerbation, Myocardial Infarction, Anxiety Disorder, Thyrotoxicosis, Electrolyte Imbalance,
Medication-induced Arrhythmia.
2. Data:
Category 1
- My independent interpretation of EKG shows atrial fibrillation.
Category 2
- External record reviewed indicated a recent MRI showing microhemorrhages.
3. Risk:
- Prescription medication was prescribed: carvedilol with increased dosing recommended.
DIAGNOSIS
- Atrial Fibrillation (ICD-10: I48.91)
Past History
Past History
ED Past Medical History: [place] and Other (Spinal stenosis, AAA)
ED Past Surgical History: Cardiac (CABG X5) and Orthopedic
Social History
Tobacco: Non-smoker
Alcohol: Occasional
Personal:
Living: with family
Phy Exam
Physical Exam
Physical Exam:
.
Course
Orders/Labs/Results
Orders:
Orders
05/11/25 22:27
Electrocardiogram (*1) Urgent
Reason for Study: Palpitations
05/11/25 22:28
EKG- Treatment ONCE
05/11/25 22:43
Complete Blood Count/With Diff Urgent
Comprehensive Metabolic Panel Urgent
Magnesium Urgent
Abnormal Lab Results
05/11/25
22:43
WBC 4.2 L 10^3/uL
(4.8-10.8)
RBC 4.29 L 10^6/uL
(4.70-6.10)
Hgb 12.6 L g/dL
(13.0-18.0)
Hct 38.2 L %
(39.0-52.0)
Neutrophils % 40.1 L %
(42.2-75.2)
Carbon Dioxide 31 H mmol/L
(22-30)
Glucose 106 H mg/dl
(70-99)
05/11/25 22:43
05/11/25 22:43
Vital Signs
Initial and Last Documented VS:
Initial Vital Signs
Temp Pulse Resp BP Pulse Ox
98.5 F 128 20 128/87 99
05/11/25 22:33 05/11/25 22:33 05/11/25 22:33 05/11/25 22:33 05/11/25 22:33
Last Documented Vital Signs
Temp Pulse Resp BP Pulse Ox
98.5 F 100 13 115/74 97
05/11/25 22:33 05/11/25 23:15 05/11/25 23:15 05/11/25 23:00 05/12/25 00:20
*Pulse Oximetry
SaO2: 97
Oxygen Mode of Delivery: Room air
Patient hypoxic: no
*Critical Care Note
Total Time (30-74mins, 75-104mins- exclusive of procedures): Not Applicable
ED Attending Note
-
Portions of this chart may have been created with voice recognition software.� Occasional wrong word or��sound alike� substitutions may have occurred due to the inherent limitations of voice recognition software.
Discharge Plan
Departure
Patient Disposition: Home (Routine Discharge)
Date of Disposition: 05/12/25
Time of Disposition: 00:29
Patient with high blood pressure during this ER visit?: No
Discharge Problem:
Atrial fibrillation
Instructions: Atrial Fibrillation (DC)
Prescriptions:
No Action
zinc 15 MG tablet
15 mg PO DAILY
nitroglycerin 0.4 MG tablet, sublingual
0.4 mg sublingual [id number] PRN (Reason: chest pain)
coenzyme Q10 [Co Q-10] 100 MG capsule
100 mg PO TID
docosahexaenoic acid-epa 1 CAP capsule
1,800 mg PO BID
bergamot (bulk) 15 GM powder
500 mg PO BID
Berberine
600 mg PO BID
aspirin 81 MG tablet,delayed release (DR/EC)
81 mg PO DAILY
B12 5,000 MCG
5,000 mcg PO DAILY
Patient Comments:
metholated form
ascorbic acid (vitamin C) [Vitamin C] 1,000 mg Tablet
1,000 mg PO DAILY
carvedilol 6.25 mg Tablet
3.125 mg PO BID
potassium 99 mg Tablet
99 mg PO DAILY
cholecalciferol (vitamin D3) [Vitamin D3] 125 mcg (5,000 unit) Tablet
7,500 unit PO DAILY
vitamin K2 100 mcg Capsule
200 mcg PO DAILY
Curcumin 400 MG
400 mg PO DAILY
Kelp (iodine) 800 MCG
800 mcg PO DAILY
Patient Comments:
1 drop + 800 mcg
Magnesium Malate 1,250 MG
1,250 mg PO TID
Methylfolate 1,000 MG
1,000 mg PO DAILY
Vitamin B9 50 MG
50 mg PO DAILY
tramadol 50 mg tablet
50 mg PO DAILYPRN PRN (Reason: pain)
pregabalin [Lyrica] 150 mg Capsule
150 mg PO BID
omega 4-whc-gjg-fish oil [Fish Oil] 1,200 (144-216) mg Capsule
1,200 cap PO BID
isosorbide mononitrate 30 mg tablet extended release 24 hr
30 mg PO DAILY Qty: 90 3RF
Repatha SureClick 140 mg/mL Pen Injector
140 mg SC Q2W
clotrimazole 10 mg ramón
10 mg mucous membrane TID PRN (Reason: thrush) 7 Days Qty: 21 0RF
albuterol sulfate 2.5 mg /3 mL (0.083 %) solution for nebulization
2.5 mg inhalation QID PRN (Reason: shortness of breath or wheezing) Qty: 90 0RF
prednisone 50 mg tablet
50 mg PO DAILY Qty: 4 0RF
amoxicillin-pot clavulanate 875-125 mg tablet
1 tab PO BID Qty: 14 0RF
azithromycin [Zithromax] 250 mg tablet
250 mg PO DAILY Qty: 4 0RF
benzonatate 200 mg capsule
200 mg PO BID PRN (Reason: Cough) Qty: 12 0RF
Referrals:
Michael Gaspar MD [Family Provider, Family Practice]
Activity Restrictions/Additional Instructions:
Please see your doctor/lamp decorator tomorrow. Return immediately for shortness of breath, chest pain, lightheadedness, passing out episode or any other concerns. Please increase your dose of Coreg to 6.25 mg daily until further advised by your
lamp decorator.
Interventions
Interventions:
*Risk Screen - Suicide Last Done: 05/11/25 22:33
*General Assessment Last Done: 05/11/25 22:33
*Neglect/Abuse Screening Last Done: 05/11/25 22:55
*ED COVID-19 Vaccine History Last Done: 05/11/25 22:55
*ED Influenza Vaccine History Last Done: 05/11/25 22:55
[facility] Fall Risk Assessment Tool Last Done: 05/11/25 22:53
ED- Cardiac Assessment Last Done: 05/11/25 22:54
ED- Pulmonary Assessment Last Done: 05/11/25 22:54
Discharge Date and Time
Print Language: ARGENTINE
== END 2025-05-12 00:43 | disposition home or self-care (01) ==
LOC: EMR 22:27
PROVIDERS: Emergency Medicine; EMERGENCY PHYSICIAN Emergency Medicine; FAMILY PHYSICIAN Family Medicine
DX: I48.0 Paroxysmal atrial fibrillation (principal); I25.10 Atherosclerotic heart disease of native coronary artery without angina pectoris; I25.2 Old myocardial infarction; I71.40 Abdominal aortic aneurysm, without rupture, unspecified; M48.00 Spinal stenosis, site unspecified; Z79.82 Long term (current) use of aspirin; Z95.1 Presence of aortocoronary bypass graft
CPT/HCPCS: 99284; 80053; 83735; 85025; 93005